=== PATIENT | male | born 1940 | race Caucasian/White ===

== ENCOUNTER 2018-09-16 02:17 | Inpatient (IN) | payer MEDICARE, OTHER ==
[~2018-09-16] VITALS: Ht 177.8 cm; Wt 88.0 kg
[~2018-09-16 02:17] MED LIST: ACET-1757 PO; ACET650S12 PR; AMOX1TAB12 PO; ASPI81TA45 PO; ATEN25TA PO; BISA10SU2 PR; CHOL200059 PO; FERR324T5 PO; FINA5TAB4 PO; GABA600T7 PO; KETO5DRO70 OP; LINE600T33 PO; LINE600T37 PO; MAG355OR14 PO; MAGN400O7 PO; ONDA4TAB13 SL; PANT40GR PO; SIMV20TA3 PO; TERA5CAP3 PO; TRAM50TA2 PO
[2018-09-16] MEDS ORDERED: HEPARIN 1,000 UNITS/ML, 10ML ONE (02:28)
[2018-09-16] MEDS ORDERED: LIDOCAINE 2%, 20ML ONE (02:28)
[2018-09-16] MEDS ORDERED: MIDAZOLAM 1 MG/ML, 5ML ONE (02:28)
[2018-09-16] MEDS ORDERED: FENTANYL PF 100 MCG/2ML ONE (02:28)
[2018-09-16] MEDS ORDERED: BIVALIRUDIN 250 MG ONE ×2 (02:28→03:54)
[2018-09-16] MEDS ORDERED: TICAGRELOR 90 MG TABLET ONE (02:28)
[2018-09-16] MEDS ORDERED: NITROGLYCERIN 5 MG/ML, 10ML ONE (02:28)
[2018-09-16] MEDS ORDERED: SODIUM CHLORIDE FLUSH 10ML SYR IVF ONE (02:30)
[2018-09-16] MEDS ORDERED: ASPIRIN 81 MG TABLET CHEW PO ONE (02:30)
--- NOTE | 2018-09-16 02:37 | NUR ---
[employer] CALLED WHEN ALERTED FOR CODE CARDIAC BY [facility] [id number]
--- NOTE | 2018-09-16 02:42 | NUR ---
pt to cath at this time with acls care and dr mccabe and medical lab technologist. Pt remain AA and O, obvious st elevation monitor
--- NOTE | 2018-09-16 02:42 | NUR ---
DR SALINAS TO BEDSIDE
[2018-09-16 02:51] LABS: MEAN CORPUSCULAR HEMOGLOBIN 31.6 pg (27.5-34.5); MEAN CORPUSCULAR HGB CONC 30.8 g/dL (33.2-36.2); MEAN CORPUSCULAR VOLUME 102.8 fL (81-97); MEAN PLATELET VOLUME 8.1 fL (7.4-10.4); PLATELET COUNT 289 x10^3/uL (130-400); RED BLOOD COUNT 2.34 x10^6/uL (4.38-5.82); RED CELL DISTRIBUTION WIDTH 29.2 % (9.4-14.8)
[2018-09-16 02:52] LABS: MD YES
[2018-09-16 02:53] LABS: INTERNATIONAL NORMALIZED RATIO 1.15 (0.93-1.1); LYMPH#(MANUAL) 0.96 x10^3/uL (1-3.4); LYMPHS% (MANUAL) 7 % (22-44); MONOS#(MANUAL) 0.69 x10^3/uL (0.3-2.7); MONOS% (MANUAL) 5 % (2-9); SEG#(MANUAL) 12.06 x10^3/uL (1.8-6.8); SEGS% (MANUAL) 88 % (42-75)
[2018-09-16 02:54] LABS: <PLATELET ESTIMATE> ADEQUATE; ALANINE AMINOTRANSFERASE 58 U/L (12-78); ALBUMIN 2.7 g/dL (3.4-5.0); ANION GAP 10 mmol/L (5-15); ANISOCYTOSIS 1+; CALCIUM 7.9 mg/dL (8.5-10.1); CHLORIDE 110 mmol/L (98-107); CREATININE 1.34 mg/dL (0.7-1.3); LARGE PLATELETS 1+; POLYCHROMASIA 1+
[2018-09-16 02:59] LABS: ALKALINE PHOSPHATASE 153 U/L (45-117); BILIRUBIN,TOTAL 0.3 mg/dL (0.2-1.0); TOTAL PROTEIN 6.9 g/dL (6.4-8.2)
[2018-09-16] MEDS ORDERED: BIVALIRUDIN 250 MG in SODIUM CHLORIDE 0.9% 50 ML IV SCH (03:45)
[2018-09-16] MEDS ORDERED: ASPIRIN 325 MG TABLET EC ONE (03:51)
[2018-09-16] MEDS ORDERED: ACETAMINOPHEN 325 MG TABLET PO PRN (04:00)
[2018-09-16] MEDS: SODIUM CHLORIDE 0.9% 1,000 ML IV SCH ×3 (04:12→19:30)
[2018-09-16 04:38] VITALS: BP 102/63
[2018-09-16 04:49] VITALS: BP 100/55
[2018-09-16] MEDS: PANTOPRAZOLE 40 MG IV IVPush SCH ×2 (06:18→18:02)
[2018-09-16 06:46] LABS: MEAN CORPUSCULAR HEMOGLOBIN 32.3 pg (27.5-34.5); MEAN CORPUSCULAR HGB CONC 31.5 g/dL (33.2-36.2); MEAN CORPUSCULAR VOLUME 102.4 fL (81-97); PLATELET COUNT 289 x10^3/uL (130-400); RED BLOOD COUNT 2.28 x10^6/uL (4.38-5.82); RED CELL DISTRIBUTION WIDTH 29.4 % (9.4-14.8)
[2018-09-16 07:37] LABS: BASOPHILS # (AUTO) 0.05 x10^3/uL (0-0.1); BASOPHILS % (AUTO) 0 % (0-1); EOSINOPHILS % (AUTO) 0 % (1-7); LYMPHOCYTES # (AUTO) 1.12 x10^3/uL (1-3.4); LYMPHOCYTES % (AUTO) 9 % (22-44); MD SCAN; MONOCYTES # (AUTO) 1.52 x10^3/uL (0.2-0.8); MONOCYTES % (AUTO) 12 % (2-9); NEUTROPHILS # (AUTO) 9.59 x10^3/uL (1.8-6.8); NEUTROPHILS % (AUTO) 78 % (42-75)
[2018-09-16 09:27] LABS: MEAN CORPUSCULAR HEMOGLOBIN 31.4 pg (27.5-34.5); MEAN CORPUSCULAR HGB CONC 30.9 g/dL (33.2-36.2); MEAN CORPUSCULAR VOLUME 101.8 fL (81-97); PLATELET COUNT 308 x10^3/uL (130-400); RED BLOOD COUNT 2.49 x10^6/uL (4.38-5.82); RED CELL DISTRIBUTION WIDTH 29.1 % (9.4-14.8)
[2018-09-16 09:46] LABS: BASOPHILS # (AUTO) 0.02 x10^3/uL (0-0.1); BASOPHILS % (AUTO) 0 % (0-1); EOSINOPHILS % (AUTO) 0 % (1-7); LYMPHOCYTES # (AUTO) 1.32 x10^3/uL (1-3.4); LYMPHOCYTES % (AUTO) 10 % (22-44); MD SCAN; MONOCYTES # (AUTO) 2.24 x10^3/uL (0.2-0.8); MONOCYTES % (AUTO) 17 % (2-9); NEUTROPHILS # (AUTO) 9.56 x10^3/uL (1.8-6.8); NEUTROPHILS % (AUTO) 73 % (42-75)
[2018-09-16] MEDS: TICAGRELOR 90 MG TABLET PO SCH ×2 (09:48→20:13)
[2018-09-16] MEDS: ASPIRIN 81 MG TABLET EC PO SCH (09:48)
[2018-09-16] MEDS: ONDANSETRON 2MG/ML, 2ML IVPush PRN (09:50)
[2018-09-16] MEDS ORDERED: DOPAMINE/D5W PMX 250 ML IV PRN (10:00)
[2018-09-16] MEDS: PHENYLEPHRINE 10 MG in SODIUM CHLORIDE 0.9% 249 ML IV PRN ×2 (12:28→19:29)
[2018-09-16 13:00] LABS: MEAN CORPUSCULAR HEMOGLOBIN 31.5 pg (27.5-34.5); MEAN CORPUSCULAR HGB CONC 30.9 g/dL (33.2-36.2); MEAN CORPUSCULAR VOLUME 102.1 fL (81-97); MEAN PLATELET VOLUME 7.8 fL (7.4-10.4); PLATELET COUNT 319 x10^3/uL (130-400); RED BLOOD COUNT 2.25 x10^6/uL (4.38-5.82); RED CELL DISTRIBUTION WIDTH 29.4 % (9.4-14.8)
[2018-09-16 13:18] LABS: BASOPHILS # (AUTO) 0.06 x10^3/uL (0-0.1); BASOPHILS % (AUTO) 0 % (0-1); EOSINOPHILS % (AUTO) 0 % (1-7); LYMPHOCYTES # (AUTO) 0.93 x10^3/uL (1-3.4); LYMPHOCYTES % (AUTO) 7 % (22-44); MD SCAN; MONOCYTES # (AUTO) 1.81 x10^3/uL (0.2-0.8); MONOCYTES % (AUTO) 13 % (2-9); NEUTROPHILS # (AUTO) 10.85 x10^3/uL (1.8-6.8); NEUTROPHILS % (AUTO) 80 % (42-75)
[2018-09-16] MEDS: FENTANYL PF 100 MCG/2ML IVPush PRN ×2 (18:01→22:12)
[2018-09-16] MEDS: ATORVASTATIN 40 MG TABLET PO SCH (20:13)
[2018-09-17] MEDS: PANTOPRAZOLE 40 MG IV IVPush SCH ×2 (05:17→17:48)
[2018-09-17] MEDS: SODIUM CHLORIDE 0.9% 1,000 ML IV SCH ×3 (05:17→19:45)
[2018-09-17 05:22] VITALS: BP 111/72
[2018-09-17 05:53] LABS: ALANINE AMINOTRANSFERASE 103 U/L (12-78); ALBUMIN 2.5 g/dL (3.4-5.0); ANION GAP 5 mmol/L (5-15); CALCIUM 8.2 mg/dL (8.5-10.1); CHLORIDE 115 mmol/L (98-107); CREATININE 0.84 mg/dL (0.7-1.3)
[2018-09-17 05:55] LABS: ALKALINE PHOSPHATASE 147 U/L (45-117); BILIRUBIN,TOTAL 0.4 mg/dL (0.2-1.0); TOTAL PROTEIN 6.4 g/dL (6.4-8.2)
[2018-09-17 06:20] LABS: MEAN CORPUSCULAR HEMOGLOBIN 32.6 pg (27.5-34.5); MEAN CORPUSCULAR HGB CONC 31.8 g/dL (33.2-36.2); MEAN CORPUSCULAR VOLUME 102.7 fL (81-97); MEAN PLATELET VOLUME 8.7 fL (7.4-10.4); PLATELET COUNT 298 x10^3/uL (130-400); RED BLOOD COUNT 2.08 x10^6/uL (4.38-5.82)
[2018-09-17 06:52] LABS: MD YES
[2018-09-17 06:53] LABS: BAND#(MANUAL) 0.16 x10^3/uL; BANDS%(MANUAL) 1 % (0-7); BASOS#(MANUAL) 0.16 x10^3/uL (0-0.1); BASOS% (MANUAL) 1 % (0-1); LYMPH#(MANUAL) 1.97 x10^3/uL (1-3.4); LYMPHS% (MANUAL) 12 % (22-44); MONOS#(MANUAL) 1.64 x10^3/uL (0.3-2.7); MONOS% (MANUAL) 10 % (2-9); NRBC % (MANUAL) 1 % (0-1); SEG#(MANUAL) 12.46 x10^3/uL (1.8-6.8); SEGS% (MANUAL) 76 % (42-75)
[2018-09-17 06:54] LABS: ANISOCYTOSIS 1+
[2018-09-17 06:55] LABS: <PLATELET ESTIMATE> ADEQUATE; <PLT MORPHOLOGY> NORMAL PLT MORPH; HYPOCHROMIA 1+; POLYCHROMASIA 1+
[2018-09-17] MEDS: ONDANSETRON 2MG/ML, 2ML IVPush PRN ×2 (07:19→16:16)
[2018-09-17] MEDS ORDERED: PHENYLEPHRINE 10 MG/ML ONE (07:52)
[2018-09-17 08:24] VITALS: BP 102/66
[2018-09-17 08:39] VITALS: BP 111/75
[2018-09-17] MEDS: TICAGRELOR 90 MG TABLET PO SCH ×2 (08:48→21:07)
[2018-09-17] MEDS: ASPIRIN 81 MG TABLET EC PO SCH (08:48)
[2018-09-17] MEDS: TAMSULOSIN 0.4 MG CAP.ER.24H PO SCH (10:13)
[2018-09-17 11:49] VITALS: BP 114/75
[2018-09-17] MEDS: ATORVASTATIN 40 MG TABLET PO SCH (21:07)
[2018-09-18] MEDS: SODIUM CHLORIDE 0.9% 1,000 ML IV SCH (02:58)
[2018-09-18 04:00] VITALS: BP 140/80
[2018-09-18] MEDS: PANTOPRAZOLE 40 MG IV IVPush SCH (05:54)
[2018-09-18 06:25] LABS: CHLORIDE 114 mmol/L (98-107)
[2018-09-18 06:31] LABS: ALANINE AMINOTRANSFERASE 77 U/L (12-78); ALBUMIN 2.4 g/dL (3.4-5.0); ALKALINE PHOSPHATASE 131 U/L (45-117); ANION GAP 5 mmol/L (5-15); BILIRUBIN,TOTAL 0.6 mg/dL (0.2-1.0); CALCIUM 8.2 mg/dL (8.5-10.1); CREATININE 0.72 mg/dL (0.7-1.3); TOTAL PROTEIN 6.4 g/dL (6.4-8.2)
[2018-09-18] MEDS: PANTOPROZOLE 40MG TABLET PO SCH ×2 (08:33→21:06)
[2018-09-18] MEDS: TAMSULOSIN 0.4 MG CAP.ER.24H PO SCH (08:33)
[2018-09-18] MEDS: TICAGRELOR 90 MG TABLET PO SCH ×2 (08:33→21:06)
[2018-09-18] MEDS: ASPIRIN 81 MG TABLET EC PO SCH (08:33)
[2018-09-18 11:02] LABS: % IRON SATURATION 5 % (20-55); IRON LEVEL 12 mcg/dL (65-175); TOTAL IRON BINDING CAPACITY 223 mcg/dL (250-450)
[2018-09-18 16:56] VITALS: BP 108/70
[2018-09-18 19:51] VITALS: BP 123/59
[2018-09-18] MEDS: ATORVASTATIN 40 MG TABLET PO SCH (21:06)
[2018-09-18] MEDS ORDERED: DIPHENHYDRAMINE 50 MG CAPSULE PO ONE (23:30)
[2018-09-19 01:33] VITALS: BP 128/72
[2018-09-19 07:55] VITALS: BP 123/78
[2018-09-19 08:27] LABS: CALCIUM 8.1 mg/dL (8.5-10.1); CREATININE 0.87 mg/dL (0.7-1.3)
[2018-09-19 08:44] LABS: ANION GAP 8 mmol/L (5-15); CHLORIDE 113 mmol/L (98-107)
[2018-09-19] MEDS: TICAGRELOR 90 MG TABLET PO SCH ×2 (09:00→20:25)
[2018-09-19 09:16] LABS: MEAN CORPUSCULAR HEMOGLOBIN 30.9 pg (27.5-34.5); MEAN CORPUSCULAR HGB CONC 31.4 g/dL (33.2-36.2); MEAN CORPUSCULAR VOLUME 98.6 fL (81-97); MEAN PLATELET VOLUME 8.5 fL (7.4-10.4); PLATELET COUNT 374 x10^3/uL (130-400); RED BLOOD COUNT 2.64 x10^6/uL (4.38-5.82); RED CELL DISTRIBUTION WIDTH 27.3 % (9.4-14.8)
[2018-09-19] MEDS: PANTOPROZOLE 40MG TABLET PO SCH ×2 (09:25→21:53)
[2018-09-19] MEDS: ASPIRIN 81 MG TABLET EC PO SCH (09:25)
[2018-09-19] MEDS: TAMSULOSIN 0.4 MG CAP.ER.24H PO SCH (09:25)
[2018-09-19 09:27] LABS: MD YES
[2018-09-19 09:28] LABS: BANDS%(MANUAL) 1 % (0-7); LYMPH#(MANUAL) 0.96 x10^3/uL (1-3.4); LYMPHS% (MANUAL) 10 % (22-44); MONOS#(MANUAL) 1.06 x10^3/uL (0.3-2.7); MONOS% (MANUAL) 11 % (2-9); SEG#(MANUAL) 7.49 x10^3/uL (1.8-6.8); SEGS% (MANUAL) 78 % (42-75)
[2018-09-19 09:29] LABS: <PLATELET ESTIMATE> ADEQUATE; <PLT MORPHOLOGY> NORMAL PLT MORPH; ANISOCYTOSIS 1+; HYPOCHROMIA 1+; POLYCHROMASIA 1+
[2018-09-19] MEDS ORDERED: CLOPIDOGREL 75 MG TABLET PO ONE (11:00)
[2018-09-19] MEDS ORDERED: LORazepam 0.5MG TABLET PO PRN (11:30)
[2018-09-19 13:00] VITALS: BP 119/55
[2018-09-19 19:52] VITALS: BP 120/74
[2018-09-19] MEDS: ATORVASTATIN 40 MG TABLET PO SCH (21:53)
[2018-09-20] VITALS (7 sets, daily range): BP systolic 130–157; BP diastolic 72–84
[2018-09-20 06:50] LABS: MD YES; MEAN CORPUSCULAR HEMOGLOBIN 30.3 pg (27.5-34.5); MEAN CORPUSCULAR HGB CONC 30.9 g/dL (33.2-36.2); MEAN PLATELET VOLUME 8.5 fL (7.4-10.4); PLATELET COUNT 392 x10^3/uL (130-400); RED BLOOD COUNT 2.66 x10^6/uL (4.38-5.82); RED CELL DISTRIBUTION WIDTH 26.5 % (9.4-14.8)
[2018-09-20 06:52] LABS: <PLATELET ESTIMATE> ADEQUATE; BAND#(MANUAL) 0.09 x10^3/uL; BANDS%(MANUAL) 1 % (0-7); HYPOCHROMIA 1+; LARGE PLATELETS 1+; LYMPH#(MANUAL) 0.61 x10^3/uL (1-3.4); LYMPHS% (MANUAL) 7 % (22-44); MONOS#(MANUAL) 0.96 x10^3/uL (0.3-2.7); MONOS% (MANUAL) 11 % (2-9); POLYCHROMASIA 1+; SEG#(MANUAL) 7.05 x10^3/uL (1.8-6.8); SEGS% (MANUAL) 81 % (42-75)
[2018-09-20 06:53] LABS: ANISOCYTOSIS 2+
[2018-09-20 06:56] LABS: TARGET CELLS 1+
[2018-09-20] MEDS: TAMSULOSIN 0.4 MG CAP.ER.24H PO SCH (08:45)
[2018-09-20] MEDS: CLOPIDOGREL 75 MG TABLET PO SCH (08:45)
[2018-09-20] MEDS: IRON SUCROSE COMPLEX 100MG/5ML IV SCH (08:45)
[2018-09-20] MEDS: ASPIRIN 81 MG TABLET EC PO SCH (08:45)
[2018-09-20] MEDS: PANTOPROZOLE 40MG TABLET PO SCH ×2 (08:45→20:38)
[2018-09-20] MEDS: FERROUS GLUCONATE 324 MG TABLET PO SCH (08:45)
[2018-09-20] MEDS ORDERED: METOPROLOL TARTRATE 25 MG TABLET ONE (11:17)
[2018-09-20] MEDS: ONDANSETRON 2MG/ML, 2ML IVPush PRN (11:48)
[2018-09-20] MEDS ORDERED: ONDANSETRON ODT 4 MG PO PRN (12:30)
[2018-09-20] MEDS ORDERED: ONDANSETRON 4 MG TABLET ONE (12:30)
[2018-09-20] MEDS ORDERED: GABA300C10 PO (16:34)
[2018-09-20] MEDS ORDERED: GABA600T7 PO (16:34)
[2018-09-20] MEDS ORDERED: METOPROLOL TARTRATE 25 MG TABLET PO SCH (18:00)
[2018-09-20] MEDS: ATORVASTATIN 40 MG TABLET PO SCH (20:38)
[2018-09-20] MEDS ORDERED: GABAPENTIN 300 MG CAPSULE PO SCH (21:00)
[2018-09-21 01:13] VITALS: BP 140/87
[2018-09-21 07:26] VITALS: BP 150/93
[2018-09-21] MEDS ORDERED: FINASTERIDE 5 MG TABLET PO SCH (09:00)
[2018-09-21] MEDS ORDERED: GABAPENTIN 300 MG CAPSULE PO SCH (09:00)
[2018-09-21] MEDS: ASPIRIN 81 MG TABLET EC PO SCH (09:31)
[2018-09-21] MEDS: TAMSULOSIN 0.4 MG CAP.ER.24H PO SCH (09:31)
[2018-09-21] MEDS: CLOPIDOGREL 75 MG TABLET PO SCH (09:31)
[2018-09-21] MEDS: FERROUS GLUCONATE 324 MG TABLET PO SCH (09:31)
[2018-09-21] MEDS: PANTOPROZOLE 40MG TABLET PO SCH (09:31)
[2018-09-21] MEDS: IRON SUCROSE COMPLEX 100MG/5ML IV SCH (09:32)
[2018-09-21 16:05] VITALS: BP 138/86
[2018-09-21] MEDS ORDERED: CLOP75TA PO (16:19)
[2018-09-21] MEDS ORDERED: ASPI81TA45 PO (16:19)
== END 2018-09-21 18:14 | DRG 248 ==
LOC: ED 02:27 → EDIP 03:03 → CCU 03:57 → 5SO 09-18 14:23
PROVIDERS: ADMIT Internal Medicine; ATTEND Internal Medicine
PROC: B2111ZZ Fluoroscopy of Multiple Coronary Arteries using Low Osmolar Contrast (ICD-10-PCS; principal; 2018-09-16)
PROC: 02703FZ Dilation of Coronary Artery, One Artery with Three Intraluminal Devices, Percutaneous Approach (ICD-10-PCS; 2018-09-16)
PROC: 02HV33Z Insertion of Infusion Device into Superior Vena Cava, Percutaneous Approach (ICD-10-PCS; 2018-09-16)
PROC: B548ZZA Ultrasonography of Superior Vena Cava, Guidance (ICD-10-PCS; 2018-09-16)
PROC: 30233N1 Transfusion of Nonautologous Red Blood Cells into Peripheral Vein, Percutaneous Approach (ICD-10-PCS; 2018-09-17)
DX: I21.19 ST elevation (STEMI) myocardial infarction involving other coronary artery of inferior wall (principal); R57.0 Cardiogenic shock; D62 Acute posthemorrhagic anemia; M86.68 Other chronic osteomyelitis, other site; I47.2 Ventricular tachycardia; N20.1 Calculus of ureter; C16.9 Malignant neoplasm of stomach, unspecified; K21.9 Gastro-esophageal reflux disease without esophagitis; I25.10 Atherosclerotic heart disease of native coronary artery without angina pectoris; E78.5 Hyperlipidemia, unspecified; F17.290 Nicotine dependence, other tobacco product, uncomplicated; G62.9 Polyneuropathy, unspecified; I11.0 Hypertensive heart disease with heart failure; I50.9 Heart failure, unspecified; I25.5 Ischemic cardiomyopathy; I44.1 Atrioventricular block, second degree; I70.0 Atherosclerosis of aorta; I73.9 Peripheral vascular disease, unspecified; N40.0 Benign prostatic hyperplasia without lower urinary tract symptoms; Z90.81 Acquired absence of spleen; Z79.02 Long term (current) use of antithrombotics/antiplatelets; Z79.2 Long term (current) use of antibiotics; Z79.82 Long term (current) use of aspirin; Z80.0 Family history of malignant neoplasm of digestive organs; Z85.028 Personal history of other malignant neoplasm of stomach; Z89.412 Acquired absence of left great toe
CPT/HCPCS: 36415; 36573; 71045; 74176; 80048; 80053; 83540; 83550; 83880; 84484; 85014; 85018; 85025; 85610; 85730; 86850; 86900; 86923; 87081; 92928; 93005; 93454; 99156; 99157; 99291; C1760; C1876; C1894; C8929; G0378; J0583; J1265; J1644; J1756; J2250; J2405; J3010; Q0162; Q9957; C1725; C1751; C1769; C1887; C9113; J2370; J7030; J7050; P9016; Q9967

== ENCOUNTER 2018-11-07 09:19 | Outpatient (CLI) | payer MEDICARE, OTHER | END 2018-11-07 23:59 | disposition home or self-care (01) | LOC: PETCFH 09:19 | PROVIDERS: ATTEND Internal Medicine Hematology & Oncology | DX: C78.7 Secondary malignant neoplasm of liver and intrahepatic bile duct (principal); N13.30 Unspecified hydronephrosis; M47.816 Spondylosis without myelopathy or radiculopathy, lumbar region; N13.2 Hydronephrosis with renal and ureteral calculous obstruction | CPT/HCPCS: 78815; A9552 ==